=== PATIENT | female | born 1975 | race Caucasian/White ===

== ENCOUNTER 2018-10-05 15:40 | Emergency (ER) | payer OTHER ==
--- NOTE | 2018-10-05 15:47 | PDOC ---
Rapid Medical Evaluation Medical Evaluation: Allergies Allergy/AdvReac Type Severity Reaction Status Date / Time latex Allergy Mild Rash Verified 09/30/12 10:23 I have performed a brief in-person evaluation of this patient. The patient presents with a chief complaint of: Around 2 weeks ago, sudden loss of vision for few seconds, then resolved; then yesterday, after coming out of shower, was disoriented for some time (does not recall events); went to [facility] and told everything was fine, but states nothing was done; saw Dr. Louise today who advised to comes to ED Pertinent physical exam findings: In NAD, no focal deficits I have ordered the following: Labs, CT head The patient will proceed to the ED for further evaluation. 10/05/18 15:42
[2018-10-05 15:48] VITALS: BP 131/86; PULSE 70; TEMP 97.7; BMI 23.9
[2018-10-05 16:15] LABS: EOS % 0.9 % (0-4.5); HEMATOCRIT 40.5 % (32.4-45.2); HEMOGLOBIN 13.7 GM/dL (10.7-15.3); LYMPH % 31.4 % (8-40); MCH 29.3 pg (25.7-33.7); MCHC 33.9 g/dl (32.0-36.0); MEAN CELL VOLUME 86.5 fl (80-96); MEAN PLT VOLUME 8.4 fl (7.5-11.1); MONO % 7.2 % (3.8-10.2); NEUT % 59.5 % (42.8-82.8); PLATELET COUNT 198 K/MM3 (134-434); RBC 4.68 M/mm3 (3.60-5.2); RDW 14.2 % (11.6-15.6); WHITE BLOOD COUNT 4.8 K/mm3 (4.0-10.0)
[2018-10-05 16:49] LABS: ANION GAP 5 MMOL/L (8-16); BLOOD UREA NITROGEN 10 mg/dL (7-18); CALCIUM 9.6 mg/dL (8.5-10.1); CHLORIDE 105 mmol/L (98-107); CO2 29 mmol/L (21-32); CREATININE 0.6 mg/dL (0.55-1.3); GLUCOSE,RANDOM 83 mg/dL (74-106); SODIUM 139 mmol/L (136-145)
--- NOTE | 2018-10-05 16:51 | PDOC ---
History of Present Illness - General Chief Complaint: Weakness Stated Complaint: HEADACHE Time Seen by Provider: 10/05/18 16:34 History Source: Patient Exam Limitations: No Limitations - History of Present Illness Initial Comments: 10/05/18 16:52 CHIEF COMPLAINT: HISTORY OF PRESENT ILLNESS: This is a 43-year-old female with no significant medical history who presents for evaluation of memory loss. She reports that on 09/23/18, she developed a sudden pain to the back of the head and vision loss for a few seconds. These symptoms spontaneously resolved. She recounts several episodes of memory loss in the intervening 2 weeks, and most recently felt disoriented to place and time yesterday. She denies focal weakness, focal numbness, change in speech, facial asymmetry, neck pain, fevers, or any other symptoms. She was seen at [place] yesterday but reports being discharged after "nothing was done." Family history: Brother had AR age 55, in coma since. Mother age 56, patient thinks AR. Father age 62 after a severe injury. PCP: Was seeing Dr. Irving, but has not followed for over [address] Stanford for first time today and was referred here. Smoking: None Alcohol: None Drugs: None REVIEW OF SYSTEMS: GENERAL/CONSTITUTIONAL: No fever or chills. No weakness. No weight change. HEAD, EYES, EARS, NOSE AND THROAT: No change in vision. No ear pain or discharge. No sore throat. CARDIOVASCULAR: No chest pain or palpitations. RESPIRATORY: No cough, wheezing, or shortness of breath. GASTROINTESTINAL: No nausea, vomiting, diarrhea or constipation. GENITOURINARY: No dysuria, frequency, or change in urination. MUSCULOSKELETAL: No joint or muscle swelling or pain. No neck or back pain. SKIN: No rash or easy bruising. NEUROLOGIC: See HPI. No headache, focal weakness, or difficulty speaking at time of exam. PSYCHIATRIC: No depression or anxiety. ENDOCRINE: No increased thirst. No abnormal weight change. HEMATOLOGIC/LYMPHATIC: No anemia, easy bleeding, or history of blood clots. ALLERGIC/IMMUNOLOGIC: No hives or skin allergy. No latex allergy. PHYSICAL EXAM: GENERAL: The patient is awake, alert, and fully oriented, in no acute distress. HEAD: Normal with no signs of trauma. ENT: Pupils equal, round and reactive to light, extraocular movements intact, sclera anicteric, conjunctiva clear. Neck supple. LUNGS: Clear to auscultation bilaterally. Normal excursion. No respiratory distress or use of accessory muscles. CV: RRR, S1/S2, no MRG. Cap refill < 2 sec. ABDOMEN: Soft, non-distended, non-tender. EXTREMITIES: Normal range of motion, no edema. NEUROLOGICAL: Normal speech, normal gait. CN II-XII grossly intact. PSYCH: Normal mood, normal affect. SKIN: Warm, dry, normal turgor, no rashes or lesions noted. 10/05/18 17:33 Past History - Past Medical History Allergies/Adverse Reactions: Allergies Allergy/AdvReac Type Severity Reaction Status Date / Time No Known Allergies Allergy Verified 10/05/18 15:42 Home Medications: Ambulatory Orders No Home Medications 0 dose .ROUTE UTDICT 09/24/12 COPD: No - Surgical History Appendectomy: Yes - Suicide/Smoking/Psychosocial Hx Smoking Status: No Smoking History: Never smoked Number of Cigarettes Smoked Daily: 0 Hx Alcohol Use: No Drug/Substance Use Hx: No *Physical Exam - Vital Signs Last Vital Signs Temp Pulse Resp BP Pulse Ox 97.7 F 70 20 131/86 99 10/05/18 15:42 10/05/18 15:42 10/05/18 15:42 10/05/18 15:42 10/05/18 15:42 Moderate Sedation - Procedure Monitoring Vital Signs: Procedure Monitoring Vital Signs Temperature 97.7 F 10/05/18 15:42 Pulse Rate 70 10/05/18 15:42 Respiratory Rate 20 10/05/18 15:42 Blood Pressure 131/86 10/05/18 15:42 O2 Sat by Pulse Oximetry (%) 99 10/05/18 15:42 ED Treatment Course - LABORATORY CBC & Chemistry Diagram: 10/05/18 15:56 10/05/18 15:56 - ADDITIONAL ORDERS Additional order review: Laboratory Results 10/05/18 10/05/18 15:58 15:56 Sodium 139 Potassium 4.0 Chloride 105 Carbon Dioxide 29 Anion Gap 5 L BUN 10 Creatinine 0.6 Creat Clearance w eGFR > 60 Random Glucose 83 Calcium 9.6 Urine HCG, Qual Negative 10/05/18 15:56 RBC 4.68 MCV 86.5 MCHC 33.9 RDW 14.2 MPV 8.4 Neutrophils % 59.5 Lymphocytes % 31.4 Monocytes % 7.2 Eosinophils % 0.9 Basophils % 1.0 Medical Decision Making - Medical Decision Making 10/05/18 17:18 A/P: 43-year-old female with headache/vision loss 2 weeks ago, resolved, and several episodes of memory loss. An IHSS equal 0. Normal neurologic exam. -CBC, CMP unremarkable -Urine negative -CT brain negative Discussed with Dr. Morales, accordion repairer for neurology. As there is no evidence of structural abnormality or acute symptoms to warrant admission, he will follow her as an outpatient. Discussed with patient and she is amenable to this plan. Followup instructions and return precautions reviewed. *DC/Admit/Observation/Transfer Diagnosis at time of Disposition: Memory loss - Discharge Dispostion Disposition: HOME Condition at time of disposition: Stable Decision to Admit order: No - Referrals Referrals: Jose Alejandro Morales DO [Staff Physician] - Call tomorrow - Patient Instructions Printed Discharge Instructions: Amnesia Additional Instructions: -Follow up with Dr. Morales - he has heard about your case. Call to schedule an appointment. -Return here for headache, vision loss, weakness, numbness, change in your speech, or any other concerning symptoms. - Post Discharge Activity
== END 2018-10-05 17:51 | disposition home or self-care (01) ==
LOC: JER 15:40
DX: R41.3 Other amnesia (principal)
CPT/HCPCS: 36415; 70450-TC; 80048; 84703; 85025; 99281-25

== ENCOUNTER 2019-02-05 19:50 | Emergency (ER) | payer OTHER ==
[2019-02-05 19:59] VITALS: BP 112/78; PULSE 72; TEMP 97.7; BMI 24.1
[2019-02-05] MEDS ORDERED: predniSONE 20 MG TABLET (UD) PO ONE (20:06)
--- NOTE | 2019-02-05 20:06 | PDOC ---
Documentation entered by Poonma Wong SCRIBE, acting as scribe for Heladio Patel MD. Heladio Patel MD: This documentation has been prepared by the Judith alvarez Xhesika, SCRIBE, under my direction and personally reviewed by me in its entirety. I confirm that the documentation accurately reflects all work, treatment, procedures, and medical decision making performed by me. History of Present Illness - General Chief Complaint: Pain Stated Complaint: RIGHT FOOT PAIN Time Seen by Provider: 02/05/19 20:00 History Source: Patient Exam Limitations: No Limitations - History of Present Illness Initial Comments: 02/05/19 20:10 The patient is a 43 year old female, with a significant past medical history of TIA who presents to the emergency department with R foot pain. The patient states she was at work walking at the onset of her pain. The patient states her pain is aggravated with walking or touching foot in certain areas. The patient denies any trauma to the foot, working out or lifting weights. The patient denies chest pain, shortness of breath, headache or dizziness. The patient denies fever, chills, nausea, vomit, diarrhea or constipation. The patient denies dysuria, frequency, urgency or hematuria. PAST MEDICAL HISTORY: no significant history PAST SURGICAL HISTORY: no significant history FAMILY HISTORY: no pertinent history SOCIAL HISTORY: Pt lives with family and is employed. MEDICATIONS: reviewed ALLERGIES: As per nursing notes Past History - Past Medical History Allergies/Adverse Reactions: Allergies Allergy/AdvReac Type Severity Reaction Status Date / Time No Known Allergies Allergy Verified 02/05/19 19:52 Home Medications: Ambulatory Orders No Home Medications 0 dose .ROUTE UTDICT 09/24/12 COPD: No - Surgical History Appendectomy: Yes - Suicide/Smoking/Psychosocial Hx Smoking Status: No Smoking History: Never smoked Number of Cigarettes Smoked Daily: 0 Hx Alcohol Use: No Drug/Substance Use Hx: No Review of Systems - Review of Systems Able to Perform ROS?: Yes Comments:: 02/05/19 20:11 General: No fevers or chills, no weakness, no weight loss HEENT: No change in vision. No sore throat,. No ear pain CardioVascular: No chest pain or shortness of breath Respiratory:No cough, or wheezing. Gastrointestinal: no nausea, vomiting, diarrhea or constipation, No rectal bleeding Genitourinary: No dysuria, hematuria, or frequency Musculoskeletal: (+) R foot pain. No joint or muscle swelling Neurologic: No headache, vertigo, dizziness or loss of consciousness Psychiatric: nor depression Skin: No rashes or easy bruising Endocrine: no increased thirst or abnormal weight change Allergic: no skin or latex allergy All other systems reviewed and normal *Physical Exam - Vital Signs Last Vital Signs Temp Pulse Resp BP Pulse Ox 97.7 F 72 15 112/78 100 02/05/19 19:51 02/05/19 19:51 02/05/19 19:51 02/05/19 19:51 02/05/19 19:51 - Physical Exam Comments: 02/05/19 20:11 GENERAL: The patient is awake, alert, and fully oriented, in no acute distress. HEAD: Normal with no signs of trauma. EYES: Pupils equal, round and reactive to light, extraocular movements intact, sclera anicteric, conjunctiva clear. EXTREMITIES:(+) R foot no ecchymosis, no pain, no erythema, no increased warmth. (+) Tenderness to palpation over proximal lateral and proximal medial portion of foot. (+) neurovascular intact. NEUROLOGICAL: Normal speech, normal gait. PSYCH: Normal mood, normal affect. SKIN: Warm, Dry, normal turgor, no rashes or lesions noted. *DC/Admit/Observation/Transfer Diagnosis at time of Disposition: Right foot pain - Discharge Dispostion Condition at time of disposition: Good Decision to Admit order: No - Referrals Referrals: Dario Irving MD [Primary Care Provider] - David Dennison MD [Staff Physician] - - Patient Instructions Additional Instructions: For the pain take Tylenol 2 500 mg tablets as often as every 6 hours as needed for pain. Wear the elastic support the you have on the foot and ankle. Follow-up with an orthopedist on Thursday if not improved. Return to the emergency department immediately with ANY new, persistent or worsening symptoms. Continue any medications as previously prescribed by your physician. You should follow up with your primary doctor as soon as possible regarding today's emergency department visit. . Please make sure your doctor reviews the results of your emergency evaluation. Thank you for coming to the Emergency Department today for your care. It was a pleasure to see you today. Please note that your evaluation is INCOMPLETE until you follow-up with your doctor. - Post Discharge Activity
[2019-02-05] MEDS ORDERED: ACETAMINOPHEN 500 MG TABLET (FP) PO ONE (20:07)
[2019-02-05] MEDS ORDERED: predniSONE 20 MG TABLET (UD) ONE (20:08)
[2019-02-05] MEDS ORDERED: ACETAMINOPHEN 500 MG TABLET (FP) ONE (20:08)
== END 2019-02-05 20:16 | disposition home or self-care (01) ==
LOC: FER 19:50
DX: M79.671 Pain in right foot (principal); Z86.73 Personal history of transient ischemic attack (TIA), and cerebral infarction without residual deficits
CPT/HCPCS: 99282-25